=== PATIENT | male | born 1950 | race Caucasian/White ===

== ENCOUNTER 2019-11-11 23:41 | Inpatient (IN) | payer OTHER ==
[~2019-11-11] VITALS: Ht 167.6 cm; Wt 78.0 kg
--- NOTE | 2019-11-12 00:05 | NUR ---
GPS RN: ADMISSION NOTE ADMITTED A 69-YR OLD MALE, FROM [facility]. ADMITTED ON 5150 FOR DTS/DTO. PER HOLD, PT. ADMITTED DUE TO THREATENING TO KILL HIMSELF WITH A KNIFE. PT ATTEMPTS TO HURT HIMSELF. PT WAS IN POSSESSION OF A KITCHEN KNIFE AND CUT SON'S FINGER HE ATTEMPTED TO HELP. ONCE THE KNIFE WAS REMOVED PATIENT PICKED UP ANOTHER KNIFE AND TOLD SON HE WOULD KILL HIMSELF. UPON FACE TO FACE ASSESSMENT, PATIENT IS A/OX3, CALM, COOPERATIVE, FEELING DEPRESSED AND [place] SPEAKING. PT WAS ADVISED OF THE HOLD. PT'S RIGHTS HANDBOOK AND A GUIDE TO PRESCRIPTION MEDICATIONS GIVEN. IN NO APPARENT DISTRESS NOTED. BELONGINGS WERE INVENTORIED AND CHECKED FOR CONTRABAND. PT. IS UNDER THE PSYCHIATRIC CARE OF DR. PRIEST ORDERS OBTAINED AND UNDER THE MEDICAL CARE OF CANDIE PFEIFFER. SKIN BODY ASSESSMENT DONE. PT DENIES PAIN/ DISCOMFORT. BED LOCKED AND PLACED IN LOWEST POSITION TO MAINTAIN SAFETY. FALL PRECAUTIONS IMPLEMENTED. WILL CONTINUE TO MONITOR Q15 MINS. FOR SAFETY AND BEHAVIOR. Addendum: 11/04/19 at 0527 by ALLYN CARRION RN PATIENT DENIES SI/HI OR AVH AT THIS TIME.
[2019-11-12 00:30] VITALS: BP 116/87
[2019-11-12] MEDS ORDERED: ACETAMINOPHEN 325 MG TABLET PO PRN (00:30)
[2019-11-12] MEDS ORDERED: TEMAZEPAM 7.5 MG CAPSULE PO PRN (00:30)
[2019-11-12] MEDS ORDERED: MAGNESIUM HYDROXIDE 30 ML UDC PO PRN (00:30)
[2019-11-12] MEDS ORDERED: MAG HYDROX/AL HYDROX/SIMETH 30 ML UDC PO PRN (00:30)
[2019-11-12] MEDS ORDERED: BLOOD SUGAR DIAGNOSTIC 1 EACH STRIP IN ONE (01:00)
[2019-11-12] MEDS ORDERED: LAMO100T17 PO (01:21)
[2019-11-12] MEDS ORDERED: ATOR10TA PO (01:21)
[2019-11-12] MEDS ORDERED: BENZ1TAB7 PO (01:21)
[2019-11-12] MEDS ORDERED: LATA2.5D7 EACHEYE (01:21)
[2019-11-12] MEDS ORDERED: TAMS-12 PO (01:21)
[2019-11-12] MEDS ORDERED: CLON1TAB12 PO (01:21)
[2019-11-12] MEDS ORDERED: LITH600C PO (01:21)
[2019-11-12] MEDS ORDERED: ARIP30TA21 PO (01:21)
[2019-11-12] MEDS ORDERED: RISP1TAB27 PO (01:21)
[2019-11-12 08:00] VITALS: BP 109/61
[2019-11-12] MEDS: TAMSULOSIN 0.4 MG CAP.SR.24H PO SCH (10:09)
[2019-11-12] MEDS ORDERED: LITHIUM CARBONATE (300 MG CAP) 300 MG CAPSULE PO SCH ×2 (12:00→21:00)
[2019-11-12] MEDS: risperiDONE 1 MG TABLET PO SCH ×2 (12:52→16:43)
--- NOTE | 2019-11-12 13:27 | NUR ---
Family Contact: SW called the pts sister in law, Hannah ([phone]), with the number that the pt provided. The number was disconnected.
--- NOTE | 2019-11-12 13:40 | NUR ---
Family Contact: SW called the pts son, Tree ([phone]), and discussed the pts treatment and initial discharge plan. Pts son stated that the pt has been declining and has become violent with the pts . Pts son stated that he would like the SW to attempt to place the pt in a SNF. SW explained that the pt has an HMO insurance and placement is not a viable option a majority of the time with getting the SNF authorization. SW stated that she will attempt.
--- NOTE | 2019-11-12 14:03 | NUR ---
Initial Discharge Plan: Pt [place] [address] [place] [address]; ([phone]). Per pt, he would like to return home. Per pts son, Tree ([phone]), he would like the pt to be placed in a facility. SW will work with the pt and the MD regarding appropriate discharge planning. SW will form a safe and proper discharge.
--- NOTE | 2019-11-12 15:29 | NUR ---
GROUP NOTE: general i farmworker invited pt to join group. Pt refused to join and wanted to sleep.
[2019-11-12 16:00] VITALS: BP 147/85
[2019-11-12 20:01] VITALS: BP 134/91
[2019-11-12] MEDS: LITHIUM CARBONATE 150 MG CAPSULE PO SCH (21:03)
[2019-11-12] MEDS: ATORVASTATIN 10 MG TABLET PO SCH (21:18)
[2019-11-12] MEDS: LATANOPROST EYE DROP 0.005% 2.5 ML BOTTLE EACHEYE SCH (21:21)
[2019-11-13 06:39] LABS: BASOPHILS % (AUTO) 0.6 % (0.0-2.0); EOSINOPHILS % (AUTO) 3.2 % (0.0-6.0); HEMATOCRIT 41 % (39-51); HEMOGLOBIN 13.8 g/dL (13.5-17.5); LYMPHOCYTES # (AUTO) 2.1 /CMM (0.8-4.8); LYMPHOCYTES % (AUTO) 34.2 % (20.0-44.0); MEAN CORPUSCULAR HGB CONC 34 g/dl (31.0-36.0); MEAN CORPUSCULAR VOLUME 90 fL (80-96); MONOCYTES # (AUTO) 0.5 /CMM (0.1-1.30); MONOCYTES % (AUTO) 7.4 % (2.0-12.0); NEUTROPHILS # (AUTO) 3.4 /CMM (1.8-8.9); NEUTROPHILS % (AUTO) 54.6 % (43.0-81.0); PLATELET COUNT (AUTO) 202 /CMM (150-450); RED BLOOD CELL COUNT(AUTO) 4.53 MIL/uL (4.5-6.0); WHITE BLOOD COUNT (AUTO) 6.3 K/uL (4.3-11.0)
--- NOTE | 2019-11-13 07:12 | NUR ---
RN NOTES : NO CHANGE OF CONDITION NOTED AND PT. RESTING WELL, , WILL CONTINUITY WITH CARE.
[2019-11-13 07:15] LABS: CALCIUM, SERUM 9.2 mg/dL (8.5-10.1); CREATININE 1.1 mg/dL (0.6-1.3); POTASSIUM 3.9 mmol/L (3.5-5.1)
[2019-11-13] MEDS: LITHIUM CARBONATE 150 MG CAPSULE PO SCH ×2 (07:48→21:22)
[2019-11-13] MEDS: TAMSULOSIN 0.4 MG CAP.SR.24H PO SCH (07:48)
[2019-11-13] MEDS: risperiDONE 1 MG TABLET PO SCH ×3 (07:48→16:39)
[2019-11-13 08:00] VITALS: BP 157/90
[2019-11-13 16:00] VITALS: BP 125/76
[2019-11-13 20:43] VITALS: BP 124/74
[2019-11-13] MEDS: ATORVASTATIN 10 MG TABLET PO SCH (21:22)
[2019-11-13] MEDS: LATANOPROST EYE DROP 0.005% 2.5 ML BOTTLE EACHEYE SCH (21:24)
[2019-11-14] MEDS: risperiDONE 1 MG TABLET PO SCH ×4 (07:47→22:06)
[2019-11-14] MEDS: TAMSULOSIN 0.4 MG CAP.SR.24H PO SCH (07:47)
[2019-11-14] MEDS: LITHIUM CARBONATE 150 MG CAPSULE PO SCH ×2 (07:47→20:55)
[2019-11-14 08:00] VITALS: BP 144/94
[2019-11-14 16:00] VITALS: BP 119/70
[2019-11-14 20:24] VITALS: BP 128/88
[2019-11-14] MEDS: LATANOPROST EYE DROP 0.005% 2.5 ML BOTTLE EACHEYE SCH (21:23)
[2019-11-14] MEDS: ATORVASTATIN 10 MG TABLET PO SCH (21:23)
[2019-11-15 08:00] VITALS: BP 156/89
[2019-11-15] MEDS: LITHIUM CARBONATE 150 MG CAPSULE PO SCH ×2 (08:19→21:04)
[2019-11-15] MEDS: TAMSULOSIN 0.4 MG CAP.SR.24H PO SCH (08:19)
[2019-11-15] MEDS: risperiDONE 1 MG TABLET PO SCH ×4 (08:19→22:05)
--- NOTE | 2019-11-15 11:31 | NUR ---
UR Note: KEYONA faxed a clinical to SCAN Vault Maker, Anju Vilcihs ([phone]), to the fax number: ([phone]). AUTH: [id number].
--- NOTE | 2019-11-15 13:30 | NUR ---
Family Contact: SW called the pts son, Tree ([phone]), and discussed the pts discharge. SW stated that the pt cannot be discharged to a SNF because the insurance company will not authorize after the pt has shown so much improvement. Pts son stated that he understands and that he will take the pt if that is the case. Pts son stated that he was feeling better after knowing that the pt has improved.
[2019-11-15 16:00] VITALS: BP 123/83
[2019-11-15 20:26] VITALS: BP 134/85
[2019-11-15] MEDS: LATANOPROST EYE DROP 0.005% 2.5 ML BOTTLE EACHEYE SCH (22:04)
[2019-11-15] MEDS: ATORVASTATIN 10 MG TABLET PO SCH (22:04)
[2019-11-16 07:44] LABS: BASOPHILS # (AUTO) 0.1 /CMM (0.0-0.2); BASOPHILS % (AUTO) 0.9 % (0.0-2.0); EOSINOPHILS % (AUTO) 2.2 % (0.0-6.0); HEMATOCRIT 43 % (39-51); HEMOGLOBIN 14.5 g/dL (13.5-17.5); LYMPHOCYTES # (AUTO) 1.8 /CMM (0.8-4.8); LYMPHOCYTES % (AUTO) 29.1 % (20.0-44.0); MEAN CORPUSCULAR HGB CONC 33 g/dl (31.0-36.0); MEAN CORPUSCULAR VOLUME 90 fL (80-96); MONOCYTES # (AUTO) 0.4 /CMM (0.1-1.30); MONOCYTES % (AUTO) 7.1 % (2.0-12.0); NEUTROPHILS # (AUTO) 3.8 /CMM (1.8-8.9); NEUTROPHILS % (AUTO) 60.7 % (43.0-81.0); PLATELET COUNT (AUTO) 227 /CMM (150-450); RED BLOOD CELL COUNT(AUTO) 4.81 MIL/uL (4.5-6.0); WHITE BLOOD COUNT (AUTO) 6.2 K/uL (4.3-11.0)
[2019-11-16 07:50] LABS: ALBUMIN 3.8 g/dL (3.4-5.0); BILIRUBIN,TOTAL 0.6 mg/dL (0.2-1.0); CALCIUM, SERUM 9.4 mg/dL (8.5-10.1); CREATININE 1.2 mg/dL (0.6-1.3); TOTAL PROTEIN, SERUM 7.3 g/dL (6.4-8.2)
[2019-11-16 08:00] VITALS: BP 114/60
[2019-11-16] MEDS: LITHIUM CARBONATE 150 MG CAPSULE PO SCH ×2 (08:18→21:22)
[2019-11-16] MEDS: TAMSULOSIN 0.4 MG CAP.SR.24H PO SCH (08:18)
[2019-11-16] MEDS: risperiDONE 1 MG TABLET PO SCH ×4 (08:18→21:23)
--- NOTE | 2019-11-16 09:00 | NUR ---
RN NOTE- QUIET LESS TALKATIVE AND INTERACTIVE THAN YESTERDAY. ENGAGES WHEN SPOKEN TO. MED COMPLIANT A BIT SUSPICIOUS THOUGH NOT OVERLY PARANOID BLUNTED AFFECT PO INTAKE GOOD USING FWW IN HALLS DENIES SI [facility]
--- NOTE | 2019-11-16 11:47 | NUR ---
UR Note: KEYONA faxed a clinical to SCAN Campus Dean, Anju Vilchis ([phone] ext [phone]), to the fax number: ([phone]). AUTH: [id number].
--- NOTE | 2019-11-16 11:47 | NUR ---
UR Note: SW spoke to [facility] Abseiling Instructor, Anju Vilchis ([phone]), regarding the pts case. She stated that the pt does not seem to meet criteria for inpatient stay and the SW attempted to provide her with more information regarding the pt. SW also stated that she would like assistance in setting up home health for the pt at the time of discharge. Pts showcase maker stated that she would like an update the following day.
--- NOTE | 2019-11-16 13:51 | NUR ---
Family Contact: KEYONA called the pts son, Tree ([phone]), and he stated that he wanted the SW to send the referral to [facility] even though the SW stated that the pt will not qualify per insurance. He stated that Calvert from the facility will help with the pts insurance. KEYONA faxed the information needed to: [phone]
--- NOTE | 2019-11-16 15:35 | NUR ---
GROUP NOTE: Group Topic: Depression SW invited patient to join group. Patient refused to participate in group without reason and did not engage with this commercial lines underwriter.
[2019-11-16 16:00] VITALS: BP 129/89
[2019-11-16 20:01] VITALS: BP 135/72
[2019-11-16] MEDS: LATANOPROST EYE DROP 0.005% 2.5 ML BOTTLE EACHEYE SCH (21:22)
[2019-11-16] MEDS: ATORVASTATIN 10 MG TABLET PO SCH (21:22)
[2019-11-17 08:00] VITALS: BP 114/62
[2019-11-17] MEDS: LITHIUM CARBONATE 150 MG CAPSULE PO SCH ×2 (08:15→20:39)
[2019-11-17] MEDS: risperiDONE 1 MG TABLET PO SCH ×4 (08:15→21:45)
[2019-11-17] MEDS: TAMSULOSIN 0.4 MG CAP.SR.24H PO SCH (08:25)
--- NOTE | 2019-11-17 09:00 | NUR ---
RN NOTE- NOT INTERACTIVE YESTERDAY. ENGAGES WHEN SPOKEN TO. MED COMPLIANT A BIT SUSPICIOUS THOUGH NOT OVERLY PARANOID BLUNTED AFFECT PO INTAKE GOOD USING FWW IN HALLS DENIES SI [facility]
[2019-11-17] MEDS ORDERED: LITHIUM CARBONATE 150 MG CAPSULE PO SCH (13:00)
--- NOTE | 2019-11-17 13:35 | NUR ---
UR Note: KEYONA faxed a clinical to SCAN Tank Worker, Anju Vilchis ([phone]), to the fax number: ([phone]). AUTH: [id number].
--- NOTE | 2019-11-17 14:05 | NUR ---
Family Contact: Pts son, Tree ([phone]), called the SW and the SW informed him that the referral packet was sent to [facility] and that the pts medications have been adjusted so the pts discharge date will be Friday.
[2019-11-17 16:00] VITALS: BP 146/81
--- NOTE | 2019-11-17 16:17 | NUR ---
Group Note: SW encouraged the pt to attend group therapy on 11/17/19 on the topic of discharge planning. Pt stated that he wanted to remain sleeping as he was napping post lunch. SW stated that was acceptable and informed him that the pt may be discharged on Friday.
[2019-11-17 19:56] VITALS: BP 115/66
[2019-11-17 19:59] VITALS: BP 115/66
[2019-11-17] MEDS: LATANOPROST EYE DROP 0.005% 2.5 ML BOTTLE EACHEYE SCH (21:45)
[2019-11-17] MEDS: ATORVASTATIN 10 MG TABLET PO SCH (21:45)
[2019-11-18 08:33] VITALS: BP 139/79
[2019-11-18] MEDS: risperiDONE 1 MG TABLET PO SCH ×4 (08:35→21:17)
[2019-11-18] MEDS: LITHIUM CARBONATE 150 MG CAPSULE PO SCH ×3 (08:35→21:17)
[2019-11-18] MEDS: TAMSULOSIN 0.4 MG CAP.SR.24H PO SCH (09:22)
--- NOTE | 2019-11-18 13:49 | NUR ---
UR Note: KEYONA spoke to SCAN Waste Management Specialist, Anju Vilchis ([phone] ext [phone]), and informed her that the pt needs psych follow up and she asked the SW to send a request. KEYONA also conducted a live clinical on the line with the transplant case manager to authorize pts inpatient stay.
--- NOTE | 2019-11-18 14:28 | NUR ---
GROUP NOTE: Topic: Adapting to our environment. cafe worker encouraged patient to participate in group therapy. Patient was laying down in bed and stated "no thanks". SW encouraged patient to share how he is feeling and patient made a hang gesture meaning "good".
--- NOTE | 2019-11-18 14:57 | NUR ---
HUAN RN NOTES PERFORMED RAY NASAL TEST PER ORDER
--- NOTE | 2019-11-18 14:58 | NUR ---
UR Note: KEYONA faxed a clinical to SCAN Hands And Dial Inspector, Anju Vilchis ([phone]), to the fax number: ([phone]). AUTH: [id number].
[2019-11-18 16:00] VITALS: BP 135/73
[2019-11-18 20:27] VITALS: BP 158/81
[2019-11-18] MEDS: ATORVASTATIN 10 MG TABLET PO SCH (21:17)
[2019-11-18] MEDS: LATANOPROST EYE DROP 0.005% 2.5 ML BOTTLE EACHEYE SCH (21:18)
--- NOTE | 2019-11-19 07:11 | NUR ---
GPS RN OPENING NOTES RECEIVED PATIENT RESTING IN BED AT THIS TIME,PT IS LATVIAN SPEAKING, NO SOB NOTED, NO S/S OF ANY ACUTE DISTRESS NOTED, NO C/O PAIN AT THIS TIME. PT IS COOPERATIVE, REMAINS CALM WITH CARE AND EASILY REDIRECTED. PT APPEARS WITHDRAWN SOMETIMES WITH LIMITED CONVERSATION. REALITY ORIENTATION DONE. PT DENIES SI/HI/AVH AT THIS TIME. ENVIRONMENTAL. SAFETY CHECKS . SAFETY PRECAUTIONS IN PLACE AND MAINTAINED AT ALL TIMES, BED IN LOWEST LOCKED POSITION, SIDE RAILS UP, CALL LIGHT WITHIN REACH. WILL CONTINUE TO MONITOR Q 15 MIN, FOR SAFETY, MOOD,BEHAVIOR AND CONTINUE WITH PLAN OF CARE
[2019-11-19 08:00] VITALS: BP 154/86
[2019-11-19] MEDS: TAMSULOSIN 0.4 MG CAP.SR.24H PO SCH (08:49)
[2019-11-19] MEDS: risperiDONE 1 MG TABLET PO SCH ×3 (08:50→21:32)
[2019-11-19] MEDS: LITHIUM CARBONATE 150 MG CAPSULE PO SCH ×3 (08:50→21:00)
[2019-11-19] MEDS ORDERED: risperiDONE 1 MG TABLET PO ONE (12:00)
--- NOTE | 2019-11-19 14:35 | NUR ---
UR Note: KEYONA faxed a clinical to SCAN Liquor Tester, Anju Vilchis ([phone] ext [phone]), to the fax number: ([phone]). AUTH: [id number].
[2019-11-19] MEDS: LORAZEPAM 0.5 MG TABLET PO PRN (15:10)
--- NOTE | 2019-11-19 15:14 | NUR ---
PATIENT AGITATED AND ANXIOUS AT THIS TIME. VS WNL. ATIVAN 0.5MG PO Q6HR PRN ADMINISTERED AT THIS TIME. WILL CONTINUE TO MONITOR
--- NOTE | 2019-11-19 15:31 | NUR ---
GROUP NOTE: Topic: Learning coping skills. harm reduction worker attempted to invite patient to participate in group. Patient was asleep at this time and unable to attend.
[2019-11-19 16:00] VITALS: BP 121/94
--- NOTE | 2019-11-19 18:57 | NUR ---
GPS RN CLOSING NOTES PATIENT AWAKE IN BED AT THIS TIME. PT REMAINED STABLE THROUGHOUT SHIFT. PT KEPT CLEAN AND DRY. ALL CARE, NEEDS, MEDICATIONS AND TREATMENT ADMINISTERED ANTICIPATED PER ORDER. SAFETY PRECAUTIONS IN PLACE AND MAINTAINED AT ALL TIMES, BED IN LOWEST LOCKED POSITION, SIDE RAILS UP, CALL LIGHT WITHIN REACH. WILL ENDORSE TO BRICK MOLDER HAND NURSE FOR MICHELLE
[2019-11-19 19:39] VITALS: BP 126/83
[2019-11-19 21:17] VITALS: BP 126/83
[2019-11-19] MEDS: LATANOPROST EYE DROP 0.005% 2.5 ML BOTTLE EACHEYE SCH (21:31)
[2019-11-19] MEDS: ATORVASTATIN 10 MG TABLET PO SCH (21:32)
--- NOTE | 2019-11-19 22:30 | NUR ---
GPS RN NOTE PATIENT IS DEPRESSED, QUIET, WITHDRAWN, ABLE TO AMBULATE WITH WALKER SAFELY. DUE MEDS GIVEN, SNACK & PO FLUIDS GIVEN & TOLERATED WELL. NO ACUTE CHANGES NOTED. WILL CONTINUE TO MONITOR SAFETY, MOOD & BEHAVIOR.
[2019-11-20 07:28] LABS: BASOPHILS % (AUTO) 0.6 % (0.0-2.0); EOSINOPHILS % (AUTO) 1.1 % (0.0-6.0); HEMATOCRIT 45 % (39-51); HEMOGLOBIN 15.3 g/dL (13.5-17.5); LYMPHOCYTES # (AUTO) 1.8 /CMM (0.8-4.8); LYMPHOCYTES % (AUTO) 26.7 % (20.0-44.0); MEAN CORPUSCULAR HGB CONC 34 g/dl (31.0-36.0); MEAN CORPUSCULAR VOLUME 90 fL (80-96); MONOCYTES # (AUTO) 0.5 /CMM (0.1-1.30); MONOCYTES % (AUTO) 7.2 % (2.0-12.0); NEUTROPHILS # (AUTO) 4.4 /CMM (1.8-8.9); NEUTROPHILS % (AUTO) 64.4 % (43.0-81.0); PLATELET COUNT (AUTO) 241 /CMM (150-450); RED BLOOD CELL COUNT(AUTO) 5.01 MIL/uL (4.5-6.0); WHITE BLOOD COUNT (AUTO) 6.9 K/uL (4.3-11.0)
[2019-11-20 07:36] LABS: ALBUMIN 3.9 g/dL (3.4-5.0); BILIRUBIN,TOTAL 0.9 mg/dL (0.2-1.0); CALCIUM, SERUM 9.7 mg/dL (8.5-10.1); POTASSIUM 3.9 mmol/L (3.5-5.1); TOTAL PROTEIN, SERUM 7.5 g/dL (6.4-8.2)
[2019-11-20 08:00] VITALS: BP 133/87
[2019-11-20] MEDS: TAMSULOSIN 0.4 MG CAP.SR.24H PO SCH (09:00)
[2019-11-20] MEDS: LITHIUM CARBONATE 150 MG CAPSULE PO SCH ×3 (09:00→21:14)
[2019-11-20] MEDS: risperiDONE 1 MG TABLET PO SCH ×3 (09:01→21:14)
[2019-11-20 16:00] VITALS: BP 147/84
[2019-11-20 21:06] VITALS: BP 142/84
[2019-11-20] MEDS: ATORVASTATIN 10 MG TABLET PO SCH (21:14)
[2019-11-20] MEDS: LATANOPROST EYE DROP 0.005% 2.5 ML BOTTLE EACHEYE SCH (21:14)
[2019-11-21 08:00] VITALS: BP 129/92
[2019-11-21] MEDS: TAMSULOSIN 0.4 MG CAP.SR.24H PO SCH (08:55)
[2019-11-21] MEDS: risperiDONE 1 MG TABLET PO SCH ×3 (08:55→21:18)
[2019-11-21] MEDS: LITHIUM CARBONATE 150 MG CAPSULE PO SCH ×3 (08:55→21:18)
--- NOTE | 2019-11-21 09:00 | NUR ---
RN OPENING NOTES RECEIVED PT SITTING IN BED, AWAKE. A/O X 2-3. BAHAMIAN SPEAKING.ABLE TO UNDERATND CHADIAN. PT. IS CALM,COOPERATIVE AT THIS TIME, PARANOID, GUARDED, DEPRESSED, WITHDRAWN, DENIES PAIN AT THIS TIME, NO ACUTE DISTRESS NOTED. DENIES SI/HI AT THIS TIME. BED IS IN LOCKED/LOWEST POSITION. BED ALARM ON. AMBULATORY WITH WALKER. ENVIRONMENTAL SAFETY CHECKS DONE. WILL CONTINUE TO MONITOR Q15 MIN FOR SAFETY, MOOD AND BEHAVIOR.
[2019-11-21 15:57] VITALS: BP 128/92
--- NOTE | 2019-11-21 16:20 | NUR ---
OFFERED PATIENT TO TAKE A SHOWER, HE DENIED
--- NOTE | 2019-11-21 17:22 | NUR ---
RN-CO: DR NORTH ( ENDOCRINOLOGY NURSE FOR FRIDAY) MADE AWARE THAT PT IS ACTING BIZARRE LIKE STARING BLANKLY AT THE CEILING AND NOT GOING OUT OF HIS ROOM UNLIKE BEFORE.
[2019-11-21 20:05] VITALS: BP 150/91
[2019-11-21] MEDS: LATANOPROST EYE DROP 0.005% 2.5 ML BOTTLE EACHEYE SCH (21:18)
[2019-11-21] MEDS: ATORVASTATIN 10 MG TABLET PO SCH (21:18)
[2019-11-22 08:00] VITALS: BP 141/74
[2019-11-22] MEDS: LITHIUM CARBONATE 150 MG CAPSULE PO SCH ×3 (08:44→21:20)
[2019-11-22] MEDS: TAMSULOSIN 0.4 MG CAP.SR.24H PO SCH (08:45)
[2019-11-22] MEDS: risperiDONE 1 MG TABLET PO SCH ×3 (08:45→21:20)
--- NOTE | 2019-11-22 09:08 | NUR ---
Family Contact: SW called the pts son, Tree ([phone]), and informed him that the pt is being discharged today and he stated that he would like the SW to speak to [place] ([phone]) at [facility] because they have accepted the pt.
--- NOTE | 2019-11-22 09:09 | NUR ---
Facility Contact: SW called [facility] ([phone]) and spoke to [place] to inquire about the pts admission. She stated that she wants to know if the pt would be willing to sign himself in and the SW stated that she will speak to the pt and call her back. She also stated that she needed to confirm with her supervisor printing and stamping.
--- NOTE | 2019-11-22 09:10 | NUR ---
Individual Intervention: SW met with the pt at bedside and discussed the pts acceptance to a SNF and stated that is the current discharge plan. Pt stated that he wanted to go home and that he feels like his family members are making the situation worse than it is. He stated that if this is a temporary placement then he would be willing to go. He stated that ultimately he would want his family members to feel comfortable with him so he is willing to sign himself into the facility if that is what they are requesting. Pt appeared to be upset by this change in the plan but seemed to understand.
--- NOTE | 2019-11-22 09:13 | NUR ---
Facility Contact: SW called [facility] ([phone]) and spoke to [place] and informed her that the pt agreed to sign himself into the facility. She stated that she is going into a meeting where she will talk with her room service supervisor and call the SW back in 30 minutes.
--- NOTE | 2019-11-22 09:14 | NUR ---
Family Contact: SW called the pts son, Tree ([phone]), and informed him that the SW spoke to [place] and that once she speaks to her manufactured buildings supervisor in their morning meeting she will call the SW back and then inform the SW about whether or not the pt can be admitted to their facility today.
--- NOTE | 2019-11-22 10:23 | NUR ---
Facility Contact: SW called [facility] ([phone]) and spoke to [place] who stated that the pt was accepted to the facility. She stated that the pt would need to sign an admissions packet and faxed it to the SW.
--- NOTE | 2019-11-22 11:21 | NUR ---
Family Contact: SW called the pts son, Tree ([phone]), and informed him that the pt was accepted to the facility and that the pt is going to be transported around 2pm.
--- NOTE | 2019-11-22 12:33 | NUR ---
Facility Contact: KEYONA called [facility] ([phone]) and spoke to C[place] and informed her that the pt is going to be discharged on Friday instead as the MD evaluated the pt and the pt stated that he is depressed. Cici stated that the pt can be discharged at that time if a bed is available.
--- NOTE | 2019-11-22 12:35 | NUR ---
Family Contact: SW called the pts son, Tree ([phone]), and informed him that the pt is being discharged on Friday as he stated that he is feeling depressed.
--- NOTE | 2019-11-22 15:38 | NUR ---
Group Note: SW invited patient to participate in group therapy to discuss the topic of Problem Solving. Patient was asleep at this time and unable to participate in group.
[2019-11-22 16:00] VITALS: BP 144/85
[2019-11-22 20:02] VITALS: BP 152/87
[2019-11-22] MEDS: ATORVASTATIN 10 MG TABLET PO SCH (21:20)
[2019-11-22] MEDS: LATANOPROST EYE DROP 0.005% 2.5 ML BOTTLE EACHEYE SCH (21:21)
[2019-11-23 08:00] VITALS: BP 145/83
[2019-11-23] MEDS: risperiDONE 1 MG TABLET PO SCH ×3 (08:03→19:05)
[2019-11-23] MEDS: TAMSULOSIN 0.4 MG CAP.SR.24H PO SCH (08:03)
[2019-11-23] MEDS: LITHIUM CARBONATE 150 MG CAPSULE PO SCH ×4 (08:03→19:04)
--- NOTE | 2019-11-23 12:34 | NUR ---
UR Note: KEYONA faxed a clinical to SCAN Nurse Obgyn, Anju Vilchis ([phone]), to the fax number: ([phone]). AUTH: [id number].
--- NOTE | 2019-11-23 12:45 | NUR ---
gps corporate director talent assessment: notes still noted with shaking/tremors of the hands. held lithium dose for [address] lind today. cn made aware.
--- NOTE | 2019-11-23 13:30 | NUR ---
gps insecticide sprayer: notes sounds asleep at this time. dr. lind here and made aware re:increase hands tremors/shaking, per md okay to give lithium, probably from risperdal and will order congentin as stated.
--- NOTE | 2019-11-23 13:40 | NUR ---
gps theatrical variety agent: psych f/u dr. lind at bedside with verbal order to hold lithium and risperdal today only and do stat cbc, cmp, lithium, ua, and ua culture. orders read back and carried out.
--- NOTE | 2019-11-23 13:46 | NUR ---
gps sheriff officer: notes called lab for stat labs, spoke to lauren.
[2019-11-23] MEDS: BENZTROPINE MESYLATE (1 MG) 1 MG TABLET PO SCH ×2 (14:02→17:17)
[2019-11-23 14:47] LABS: BASOPHILS # (AUTO) 0.1 /CMM (0.0-0.2); BASOPHILS % (AUTO) 0.6 % (0.0-2.0); CALCIUM, SERUM 9.4 mg/dL (8.5-10.1); HEMATOCRIT 46 % (39-51); HEMOGLOBIN 15.4 g/dL (13.5-17.5); LYMPHOCYTES # (AUTO) 1.7 /CMM (0.8-4.8); LYMPHOCYTES % (AUTO) 19.3 % (20.0-44.0); MEAN CORPUSCULAR HGB CONC 34 g/dl (31.0-36.0); MEAN CORPUSCULAR VOLUME 90 fL (80-96); MONOCYTES # (AUTO) 0.6 /CMM (0.1-1.30); MONOCYTES % (AUTO) 7.5 % (2.0-12.0); NEUTROPHILS # (AUTO) 6.2 /CMM (1.8-8.9); NEUTROPHILS % (AUTO) 71.6 % (43.0-81.0); PLATELET COUNT (AUTO) 266 /CMM (150-450); POTASSIUM 3.9 mmol/L (3.5-5.1); RED BLOOD CELL COUNT(AUTO) 5.08 MIL/uL (4.5-6.0); WHITE BLOOD COUNT (AUTO) 8.6 K/uL (4.3-11.0)
[2019-11-23 14:50] LABS: ALBUMIN 3.6 g/dL (3.4-5.0); BILIRUBIN,TOTAL 0.8 mg/dL (0.2-1.0); TOTAL PROTEIN, SERUM 7.1 g/dL (6.4-8.2)
--- NOTE | 2019-11-23 15:53 | NUR ---
Group Note: SW encouraged pt to attend group therapy on 11/23/19 on the topic of discharge planning. Pt refused to attend and appeared to be depressed. Pt stated that he was not feeling well and that he did not want to talk at this time.
[2019-11-23 16:00] VITALS: BP 110/66
--- NOTE | 2019-11-23 17:05 | NUR ---
gps teacher resource: notes f/u made to lab, spoke to lauren re: lithium level, stated, "it's a sent out, i already called [facility] and informed them it's a stat order, but they haven't strip picker the specimen." also informed suda that there's a urine collection here for same pt and ready to be picked up.
--- NOTE | 2019-11-23 19:04 | NUR ---
gps platform power technician: notes dr. lind notified and made aware re: stat labs results with order to hold risperdal and lithium dose tonight and okay to restart tomorrow; there's labs for tomorrow too as stated. okay to give congentin per dr. lind.
[2019-11-23 20:15] VITALS: BP 117/60
[2019-11-23 20:57] LABS: APPEARANCE,URINE CLEAR (CLEAR); BILIRUBIN,URINE NEGATIVE (NEGATIVE); BLOOD, URINE TRACE-INTA Ery/uL (NEGATIVE); COLOR,URINE YELLOW (YELLOW); KETONES,URINE NEGATIVE (NEGATIVE); LEUKOCYTE ESTERASE ,URINE NEGATIVE (NEGATIVE); NITRITE, URINE NEGATIVE (NEGATIVE); PROTEIN,URINE NEGATIVE (NEGATIVE); UGLUCOSE NEGATIVE (NEGATIVE)
[2019-11-23] MEDS: ATORVASTATIN 10 MG TABLET PO SCH (21:18)
[2019-11-23] MEDS: LATANOPROST EYE DROP 0.005% 2.5 ML BOTTLE EACHEYE SCH (21:19)
--- NOTE | 2019-11-23 22:00 | NUR ---
GPS NOTES RISPERDAL AND LITHIUM NOT GIVEN. ON HOLD TODAY. PATIENT HAS HANDS TREMORS DR. PRIEST AWARE. MAY RESUME MEDS IN THE MORNING.
[2019-11-23 22:35] LABS: BACTERIA,URINE Few /HPF (None Seen); SQUAMOUS EPITHELIAL CELL,UR Few /HPF (None Seen)
[2019-11-24 07:33] LABS: BASOPHILS # (AUTO) 0.1 /CMM (0.0-0.2); BASOPHILS % (AUTO) 0.8 % (0.0-2.0); EOSINOPHILS % (AUTO) 1.6 % (0.0-6.0); HEMATOCRIT 46 % (39-51); HEMOGLOBIN 15.5 g/dL (13.5-17.5); LYMPHOCYTES # (AUTO) 2.1 /CMM (0.8-4.8); LYMPHOCYTES % (AUTO) 27.8 % (20.0-44.0); MEAN CORPUSCULAR HGB CONC 34 g/dl (31.0-36.0); MEAN CORPUSCULAR VOLUME 90 fL (80-96); MONOCYTES # (AUTO) 0.6 /CMM (0.1-1.30); MONOCYTES % (AUTO) 7.8 % (2.0-12.0); NEUTROPHILS # (AUTO) 4.7 /CMM (1.8-8.9); PLATELET COUNT (AUTO) 240 /CMM (150-450); RED BLOOD CELL COUNT(AUTO) 5.11 MIL/uL (4.5-6.0); WHITE BLOOD COUNT (AUTO) 7.5 K/uL (4.3-11.0)
[2019-11-24 07:56] LABS: ALBUMIN 3.6 g/dL (3.4-5.0); BILIRUBIN,TOTAL 1.2 mg/dL (0.2-1.0); CALCIUM, SERUM 8.9 mg/dL (8.5-10.1); POTASSIUM 3.6 mmol/L (3.5-5.1); TOTAL PROTEIN, SERUM 7.1 g/dL (6.4-8.2)
[2019-11-24 08:00] VITALS: BP 119/82
[2019-11-24] MEDS: TAMSULOSIN 0.4 MG CAP.SR.24H PO SCH (08:48)
[2019-11-24] MEDS: LITHIUM CARBONATE 150 MG CAPSULE PO SCH ×3 (08:48→21:17)
[2019-11-24] MEDS: BENZTROPINE MESYLATE (1 MG) 1 MG TABLET PO SCH ×3 (08:48→17:08)
[2019-11-24] MEDS: risperiDONE 1 MG TABLET PO SCH ×2 (08:48→17:09)
--- NOTE | 2019-11-24 11:36 | NUR ---
Group Note: SW encouraged pt to participate in group on the topic of dealing with anxiety. Patient was asleep at that time and did not participate.
--- NOTE | 2019-11-24 14:34 | NUR ---
UR Note: KEYONA faxed a clinical to SCAN Hot Plate Press Operator, Anju Vilchis ([phone] ext [phone]), to the fax number: ([phone]). AUTH: [id number].
--- NOTE | 2019-11-24 14:39 | NUR ---
Family Contact: SW called the pts son, Tree ([phone]), and informed him about the pts current situation and stated that she will keep him updated regarding his discharge planning.
[2019-11-24 16:00] VITALS: BP 114/87
[2019-11-24 19:37] VITALS: BP 138/64
[2019-11-24] MEDS: ATORVASTATIN 10 MG TABLET PO SCH (21:16)
[2019-11-24] MEDS: LATANOPROST EYE DROP 0.005% 2.5 ML BOTTLE EACHEYE SCH (21:17)
[2019-11-25 08:00] VITALS: BP 153/77
[2019-11-25] MEDS: TAMSULOSIN 0.4 MG CAP.SR.24H PO SCH (08:35)
[2019-11-25] MEDS: risperiDONE 1 MG TABLET PO SCH ×2 (08:35→17:12)
[2019-11-25] MEDS: BENZTROPINE MESYLATE (1 MG) 1 MG TABLET PO SCH ×3 (08:35→17:13)
[2019-11-25] MEDS: LITHIUM CARBONATE 150 MG CAPSULE PO SCH ×2 (08:36→12:24)
--- NOTE | 2019-11-25 14:37 | NUR ---
UR Note: KEYONA faxed a clinical to SCAN Industrial Cafeteria Manager, Anju Vilchis ([phone]), to the fax number: ([phone]). AUTH: [id number].
[2019-11-25 16:00] VITALS: BP 157/81
[2019-11-25] MEDS: LORAZEPAM 0.5 MG TABLET PO PRN (16:22)
--- NOTE | 2019-11-25 16:23 | NUR ---
GPS/RN-NOTES NOTED PATIENT WITH DISORIENTED ,CONFUSED, WANDERING TO OTHER PATIENT'S ROOM , AGITATED WHEN REDIRECTED. ATIVAN 0.5MG P.O GIVEN PRN ORDER. WILL CONT. MONITORING FOR SAFETY AND BEHAVIOR.
--- NOTE | 2019-11-25 17:30 | NUR ---
GPS/RN-NOTES PATIENT IN THE DAY ROOM UP IN THE CHAIR,CALM NO ACUTE DISTRESS NOTED.
--- NOTE | 2019-11-25 19:07 | NUR ---
GPS/RN-NOTES PATIENT LAYING IN BED SLEEPING WITH BREATHING EVEN AND NONLABORED EASILY AROUSE.NO ACUTE DISTRESS NOTED. NO URINE COLLECTED THIS SHIFT DUE TO PATIENT WAS UNCOOPERATIVE. WILL ENDORSED TO INCOMING NURSE FOR COLLECTION AND CONTINUITY OF CARE.
[2019-11-25 20:19] VITALS: BP 103/50
[2019-11-25] MEDS: ATORVASTATIN 10 MG TABLET PO SCH (21:47)
[2019-11-25] MEDS: LATANOPROST EYE DROP 0.005% 2.5 ML BOTTLE EACHEYE SCH (21:47)
[2019-11-26 06:20] LABS: BASOPHILS # (AUTO) 0.1 /CMM (0.0-0.2); BASOPHILS % (AUTO) 0.9 % (0.0-2.0); EOSINOPHILS % (AUTO) 2.8 % (0.0-6.0); HEMATOCRIT 42 % (39-51); HEMOGLOBIN 14.1 g/dL (13.5-17.5); LYMPHOCYTES # (AUTO) 2.6 /CMM (0.8-4.8); LYMPHOCYTES % (AUTO) 35.5 % (20.0-44.0); MEAN CORPUSCULAR HGB CONC 34 g/dl (31.0-36.0); MEAN CORPUSCULAR VOLUME 90 fL (80-96); MONOCYTES # (AUTO) 0.5 /CMM (0.1-1.30); MONOCYTES % (AUTO) 7.3 % (2.0-12.0); NEUTROPHILS # (AUTO) 3.9 /CMM (1.8-8.9); NEUTROPHILS % (AUTO) 53.5 % (43.0-81.0); PLATELET COUNT (AUTO) 234 /CMM (150-450); RED BLOOD CELL COUNT(AUTO) 4.63 MIL/uL (4.5-6.0); WHITE BLOOD COUNT (AUTO) 7.2 K/uL (4.3-11.0)
[2019-11-26 06:58] LABS: ALBUMIN 3.5 g/dL (3.4-5.0); CALCIUM, SERUM 9.1 mg/dL (8.5-10.1); TOTAL PROTEIN, SERUM 6.6 g/dL (6.4-8.2)
[2019-11-26 08:30] VITALS: BP 115/80
[2019-11-26] MEDS: risperiDONE 1 MG TABLET PO SCH ×2 (09:38→16:50)
[2019-11-26] MEDS: BENZTROPINE MESYLATE (1 MG) 1 MG TABLET PO SCH ×2 (09:38→16:50)
[2019-11-26] MEDS: TAMSULOSIN 0.4 MG CAP.SR.24H PO SCH (09:38)
[2019-11-26] MEDS: LITHIUM CARBONATE 150 MG CAPSULE PO SCH ×2 (09:40→17:06)
[2019-11-26 11:52] LABS: APPEARANCE,URINE CLEAR (CLEAR); BILIRUBIN,URINE NEGATIVE (NEGATIVE); BLOOD, URINE NEGATIVE Ery/uL (NEGATIVE); COLOR,URINE YELLOW (YELLOW); KETONES,URINE NEGATIVE (NEGATIVE); LEUKOCYTE ESTERASE ,URINE NEGATIVE (NEGATIVE); NITRITE, URINE NEGATIVE (NEGATIVE); PH,URINE 7.5 (5.0-8.0); PROTEIN,URINE NEGATIVE (NEGATIVE); UGLUCOSE 100 MG/DL mg/dL (NEGATIVE)
[2019-11-26 13:08] LABS: BACTERIA,URINE Rare /HPF (None Seen); RBC,URINE 0-2 /HPF (0-2); SQUAMOUS EPITHELIAL CELL,UR Rare /HPF (None Seen)
--- NOTE | 2019-11-26 15:11 | NUR ---
UR Note: KEYONA faxed a clinical to SCAN Steeple Jack, Anju Vilchis ([phone]), to the fax number: ([phone]). AUTH: [id number].
--- NOTE | 2019-11-26 15:15 | NUR ---
Family Contact: KEYONA called the pts son, Tree ([phone]), and informed him that the pt is going to be discharged on Friday. KEYONA stated that she will update him on Friday.
[2019-11-26 16:00] VITALS: BP 118/71
[2019-11-26 19:51] VITALS: BP 109/53
[2019-11-26] MEDS: ATORVASTATIN 10 MG TABLET PO SCH (21:12)
[2019-11-26] MEDS: LATANOPROST EYE DROP 0.005% 2.5 ML BOTTLE EACHEYE SCH (21:12)
[2019-11-26 23:06] VITALS: BP 109/53
--- NOTE | 2019-11-27 07:10 | NUR ---
GPS RN NOTE PATIENT SLEPT WELL AT NIGHT. PT IS A/O X2-3, FORGETFUL, GUARDED, ISOLATIVE, FLAT AFFECT, QUIET, ANXIOUS AT TIMES. INTERACTED WHEN ENGAGED, MED COMPLIANT. NO C/O PAIN VERBALIZED AT NIGHT. BREATHING AT ROOM AIR, NO DISTRESS NOTED, VITAL SIGNS STABLE. PT DENIES SI/HI AT THIS TIME. ENVIRONMENTAL CHECK DONE, BED IN LOWEST AND LOCKED POSITION, BED ALARM IS ON, WALKER IS NEXT TO BEDSIDE, WILL CONTINUE TO MONITOR Q15 MIN FOR SAFETY, MOOD AND BEHAVIOR.
[2019-11-27 08:00] VITALS: BP 122/83
[2019-11-27] MEDS: risperiDONE 1 MG TABLET PO SCH ×2 (08:50→16:27)
[2019-11-27] MEDS: BENZTROPINE MESYLATE (1 MG) 1 MG TABLET PO SCH ×2 (08:50→16:27)
[2019-11-27] MEDS: LITHIUM CARBONATE 150 MG CAPSULE PO SCH ×2 (08:50→12:17)
[2019-11-27] MEDS: TAMSULOSIN 0.4 MG CAP.SR.24H PO SCH (08:50)
[2019-11-27 16:00] VITALS: BP 129/66
[2019-11-27 20:00] VITALS: BP 115/69
[2019-11-27 20:34] VITALS: BP 115/69
[2019-11-27] MEDS: LATANOPROST EYE DROP 0.005% 2.5 ML BOTTLE EACHEYE SCH (21:48)
[2019-11-27] MEDS: ATORVASTATIN 10 MG TABLET PO SCH (21:48)
--- NOTE | 2019-11-28 03:04 | NUR ---
GPS RN NOTE PATIENT IS SLEEPING COMFORTABLY. NO BEHAVIOR EPISODES NOTED. PATIENT NOTED TO BE CALM, RELAXED, QUIET, INTERACTS WHEN ENGAGED. MED COMPLAINT. AMBULATORY & STEADY. WILL CONTINUE TO MONITOR FOR SAFETY, MOOD & BEHAVIOR.
[2019-11-28 08:00] VITALS: BP 106/66
[2019-11-28] MEDS: TAMSULOSIN 0.4 MG CAP.SR.24H PO SCH (09:18)
[2019-11-28] MEDS: BENZTROPINE MESYLATE (1 MG) 1 MG TABLET PO SCH ×2 (09:18→16:56)
[2019-11-28] MEDS: LITHIUM CARBONATE 150 MG CAPSULE PO SCH ×2 (09:18→12:24)
[2019-11-28] MEDS: risperiDONE 1 MG TABLET PO SCH ×2 (09:19→16:57)
[2019-11-28 15:56] VITALS: BP 116/67
[2019-11-28 20:00] VITALS: BP 119/72
[2019-11-28] MEDS: ATORVASTATIN 10 MG TABLET PO SCH (21:29)
[2019-11-28] MEDS: LATANOPROST EYE DROP 0.005% 2.5 ML BOTTLE EACHEYE SCH (21:30)
[2019-11-29 07:02] LABS: BASOPHILS # (AUTO) 0.1 /CMM (0.0-0.2); BASOPHILS % (AUTO) 0.8 % (0.0-2.0); EOSINOPHILS % (AUTO) 2.2 % (0.0-6.0); HEMATOCRIT 42 % (39-51); HEMOGLOBIN 13.9 g/dL (13.5-17.5); LYMPHOCYTES # (AUTO) 1.9 /CMM (0.8-4.8); LYMPHOCYTES % (AUTO) 29.5 % (20.0-44.0); MEAN CORPUSCULAR HGB CONC 33 g/dl (31.0-36.0); MEAN CORPUSCULAR VOLUME 90 fL (80-96); MONOCYTES # (AUTO) 0.5 /CMM (0.1-1.30); NEUTROPHILS # (AUTO) 3.9 /CMM (1.8-8.9); NEUTROPHILS % (AUTO) 60.5 % (43.0-81.0); PLATELET COUNT (AUTO) 231 /CMM (150-450); RED BLOOD CELL COUNT(AUTO) 4.67 MIL/uL (4.5-6.0); WHITE BLOOD COUNT (AUTO) 6.5 K/uL (4.3-11.0)
[2019-11-29 08:00] VITALS: BP 121/77
[2019-11-29 08:04] LABS: BILIRUBIN,TOTAL 0.8 mg/dL (0.2-1.0); CALCIUM, SERUM 8.9 mg/dL (8.5-10.1); CARBON DIOXIDE 27 mmol/L (21-32); CHLORIDE 106 mmol/L (98-107); CREATININE 1.1 mg/dL (0.6-1.3); GLUCOSE 107 mg/dL (74-106); POTASSIUM 3.8 mmol/L (3.5-5.1); SODIUM SERUM 139 mmol/L (136-145); UREA NITROGEN, BLOOD 21 mg/dL (7-18)
[2019-11-29 08:05] LABS: ALANINE AMINOTRANSFERASE 35 U/L (12-78); ALBUMIN 3.2 g/dL (3.4-5.0); ALKALINE PHOSPHATASE 60 U/L (46-116); ASPARTATE AMINOTRANSFERASE 14 U/L (15-37); TOTAL PROTEIN, SERUM 6.3 g/dL (6.4-8.2)
[2019-11-29] MEDS: TAMSULOSIN 0.4 MG CAP.SR.24H PO SCH (08:43)
[2019-11-29] MEDS: BENZTROPINE MESYLATE (1 MG) 1 MG TABLET PO SCH (08:43)
[2019-11-29] MEDS: risperiDONE 1 MG TABLET PO SCH (08:43)
[2019-11-29] MEDS: LITHIUM CARBONATE 150 MG CAPSULE PO SCH ×2 (08:43→12:23)
--- NOTE | 2019-11-29 11:30 | NUR ---
Family Contact: SW called the pts son, Tree ([phone]), and left a voicemail stating that the pt is going to be discharged to [facility] today.
--- NOTE | 2019-11-29 11:46 | NUR ---
Discharge Note: Pt was discharged to [facility] located at [address] [place] [address]; . Pt was transported via [facility] at 2pm. Pt will Rm 31A. Pts son, Tree ([phone]), was made aware of the placement. Upon discharge, the pt appeared to be in a depressed mood and presented with a calm affect. Pt appeared to be alert and oriented x4 (time, place, self and situation). Pt denied both suicidal and homicidal ideation as well as auditory and visual hallucinations. Pt appeared ambulatory with assistance of a walker and was appropriately dressed and groomed. Pt will be under the care of psychiatrist, Dr. Mookie Muñoz, located at [address] [place] [address]; ext. [phone] inspector, Dr. Rad Hardiwck, located at [address] [place] [address]; . Pt will meet with these providers at the facility.
[2019-11-29 16:00] VITALS: BP 96/64
--- NOTE | 2019-11-29 16:20 | NUR ---
AIRLINE RADIO OPERATOR NOTE: 69 YEAR OLD MALE DISCHARGED TO [facility] IN STABLE CONDITION CONDITION. COMPLIANT WITH MEDICATIONS, COOPERATIVE WITH TREATMENT PLANS. PATIENT DENIES SI/HI AND INSTRUCTED TO GO TO THE CLOSEST ER IF DEVELOPING SI/HI. BEHAVIOR IMPROVED, PSYCHIATRIC TREATMENT PLANS MET. MEDICAL TREATMENT PLANS DEFERRED FOR CONTINUAL MONITORING. EDUCATED WITH ABOUT AFTER CARE PLAN AND COPY PROVIDED. RETURNED PERSONAL BELONGINGS TO PATIENT. MEDICATIONS RECONCILED WITH DR PHILLIPS AND DR. PRIEST. REPORT GIVEN TO PACHECO MOORE FOR CONTINUITY OF CARE. PATIENT UNABLE TO SIGN PAPERWORK DUE TO TREMORS. WOUND PICTURES TAKEN BY SORT OPERATIONS SUPERVISOR AND DOCUMENTED IN CHART. PATIENT LEFT THE UNIT VIA GURNEY WITH EMS AT 1620
== END 2019-11-29 16:20 | DRG 885 ==
LOC: GPS 23:41
PROVIDERS: ADMIT Psychiatry & Neurology Psychosomatic Medicine; ATTEND Family Medicine
DX: F25.0 Schizoaffective disorder, bipolar type (principal); R45.851 Suicidal ideations; F41.9 Anxiety disorder, unspecified; E78.5 Hyperlipidemia, unspecified; H40.9 Unspecified glaucoma; N40.0 Benign prostatic hyperplasia without lower urinary tract symptoms; R73.9 Hyperglycemia, unspecified
CPT/HCPCS: 36415; 80048-TC; 80053-TC; 80061-TC; 81000-TC; 82962-TC; 85025-TC; 87081-TC; 87086-TC; 97116-TC; 97530-TC